=== PATIENT | female | born 1990 | race Hispanic/Latino ===

== ENCOUNTER 2019-08-16 15:33 | Emergency (ER) | payer OTHER | END 2019-08-16 16:41 | disposition home or self-care (01) | LOC: EDH 15:33 | DX: J06.9 Acute upper respiratory infection, unspecified (principal); Z20.828 Contact with and (suspected) exposure to other viral communicable diseases | CPT/HCPCS: 36415; 99283; U0003 ==

== ENCOUNTER 2025-02-15 02:02 | Emergency (ER) | payer MEDICAID, OTHER ==
[~2025-02-15] VITALS: Ht 160 cm; Wt 95.3 kg
--- NOTE | 2025-02-15 02:05 | NUR ---
REPORT TO ALESHA VÁZQUEZ
--- NOTE | 2025-02-15 02:08 | NUR ---
UA CUP PROVIDED
[2025-02-15 02:22] LABS: IMMATURE GRANULOCYTE ABSOLUTE 0.03 K/uL (0-1); NUCLEATED RED BLOOD CELLS 0.0 % (0.0-0.19); PLATELET COUNT (AUTO) 269 K/uL (130-400); RED BLOOD CELL COUNT(AUTO) 4.16 MIL/uL (4.00-5.50); RED CELL DISTRIBUTION WIDTH 12.3 % (11.0-15.5); WHITE BLOOD COUNT (AUTO) 10.4 K/uL (4.8-10.8)
--- NOTE | 2025-02-15 02:26 | ERN ---
ED Note History of Present Illness Stated Complaint: ABD PAIN Chief Complaint: Abdominal Pain Time Seen by MD: 02:17 Time Seen by Midlevel: 02:17 Dictation: The patient is a 34-year-old female with no past medical history who presents to the emergency department with complaints of right lower quadrant pain associated with nausea and vomiting onset midnight. Patient denies any diarrhea or constipation. Reports last bowel movement was yesterday. Denies any fevers. Denies any known . Allergies: Coded Allergies: No Known Drug Allergies (Unverified Allergy, Unknown, 09/20/22) Home Meds Active Scripts Ketorolac Tromethamine (Toradol) 10 Mg Tab, 1 TAB PO Q6HPRN PRN for pain for 5 Days, #20 TAB 0 Refills Prov:MONIQUE RODRIGUEZ MD 02/15/25 Reported Medications Ibuprofen (Ibuprofen) 600 Mg Tablet, 600 MG PO Q6H PRN for PAIN, TAB 09/22/22 Past Medical History Past Medical History: Other Additional Past Medical Hx: GASTRITIS Surgical History: None Family History: Negative Social History: Negative LMP: Jan 01, 2025 RN Note Reviewed/Agreed w/PFSH: Yes Review of System Dictation Constitutional: Negative for fever,chills, and weight loss Eyes: Negative for injury, pain,redness, and discharge ENT: Negative for injury,pain or swelling Cardiovascular: Negative for chest pain, palpitations, and edema Respiratory: Negative for shortness of breath, cough, and wheezing, Abdomen/GI: Negative for diarrhea, and constipation positive for abdominal pain, positive for nausea, vomiting Back: Negative for injury and positive for right flank pain radiating to the right lower quadrant. pain : Negative for injury, bleeding and discharge MS/Extremity: Negative for injury and deformity Skin: Negative for rash, and discoloration Neuro: Negative for headache, weakness, numbness, tingling, and seizure Psych: Negative for suicide ideation, homicidal ideation, and hallucinations Initial Vital Sign VS Vital Signs Date Time Temp Pulse Resp B/P (MAP) Pulse Ox O2 Delivery O2 Flow Rate FiO2 02/15/25 02:03 97.3 87 20 149/97 97 Room Air 02/15/25 04:18 0 21 Physical Exam Dictation Vital Signs reviewed General Appearance: Alert, oriented x 3, no acute distress, well developed, nourished. Head and Face: non-traumatic. Eyes: PERRL, pink conjunctivas, eyelid no trauma, anterior chamber with arcus senilis. Ears: Pinnas intact and no signs of trauma or erythema ear canals clear and no discharge TM no erythema Nose: No discharge, no bleeding. Oropharynx: Mouth normal, tongue pink. pharynx clear,no erythema, tonsils no exudates, no abscesses noted, mucous membrane moist Neck: Supple, non-tender, no thyromegaly, no masses, no JVD, no bruits Breast:Deferred Chest:No tenderness, no crepitus, no paradoxical movement, no retractions Lungs:Clear, well-ventilated, symmetric, no rales, no wheezing, no rhonchi, no stridor, good breath sounds bilaterally Heart: Regular rate, regular rhythm, no murmur, no gallops Vascular: no peripheral edema, Abdomen: Soft, positive bowel sounds, nondistended, no guarding, Right lower quadrant tenderness,, no rebound, no masses no hepatomegaly, no splenomegaly, no Paul's sign, no hernias. Rectal: Deferred Genital: Deferred Neurological: Normal speech, motor function intact, sensory function intact Musculoskeletal: Neck nontender, full range of motion, back nontender, full range of motion, Extremities: nontender, full range of motion Skin: Color pink, dry, no turgor, no rash, no lacerations, no abrasions, no contusions. Lymphatic: Deferred Results (Laboratory/Radiology) Laboratory/Radiology Laboratory Tests Test 02/15/25 02:10 02/15/25 02:12 Urine Color YELLOW (YELLOW) Urine Appearance CLEAR (CLEAR) Urine pH 6.0 (5.0-8.0) Urine Specific [place] 1.028 (1.001-1.031) Urine Protein 10 mg/dL (NEGATIVE) H Urine Glucose (UA) NEGATIVE mg/dL (NEGATIVE) Urine Ketones NEGATIVE mg/dL (NEGATIVE) Urine Occult Blood NEGATIVE (NEGATIVE) Urine Nitrate NEGATIVE (NEGATIVE) Urine Bilirubin NEGATIVE mg/dL (NEGATIVE) Urine Urobilinogen 0.2 mg/dL (0.2-1.0) Urine Leukocyte Esterase NEGATIVE Humberto/uL Urine RBC 2-5 /HPF (0-1) H Urine WBC 6-10 /HPF (0-1) H Urine Squamous Epithelial Cells MOD /HPF (0-2) Urine Bacteria RARE /HPF (None Seen) Urine HCG, Qualitative NEGATIVE (NEGATIVE) White Blood Count 10.4 K/uL (4.8-10.8) Red Blood Count 4.16 MIL/uL (4.00-5.50) Hemoglobin 12.6 g/dL (12.0-16.0) Hematocrit 37.1 % (36-48) Mean Corpuscular Volume 89.2 fL (79-99) Mean Corpuscular Hemoglobin 30.3 pg (27.0-33.0) Mean Corpuscular Hemoglobin Concent 34.0 g/dL (32.0-36.0) Red Cell Distribution Width 12.3 % (11.0-15.5) Platelet Count 269 K/uL (130-400) Mean Platelet Volume 9.9 fL (7.5-10.5) Immature Granulocyte % (Auto) 0.3 % (0-1) Neutrophils (%) (Auto) 55.0 % (40.0-77.0) Lymphocytes (%) (Auto) 32.3 % (21.0-51.0) Monocytes (%) (Auto) 8.6 % (3.0-13.0) Eosinophils (%) (Auto) 3.4 % (0.0-8.0) Basophils (%) (Auto) 0.4 % (0.0-5.0) Neutrophils # (Auto) 5.7 K/uL (1.8-7.7) Lymphocytes # (Auto) 3.4 K/uL (1.0-4.8) Monocytes # (Auto) 0.9 K/uL (0.1-1.0) Eosinophils # (Auto) 0.35 K/uL (0.00-0.70) Basophils # (Auto) 0.04 K/uL (0.00-0.20) Absolute Immature Granulocyte (auto 0.03 K/uL (0-1) Nucleated Red Blood Cells 0.0 % (0.0-0.19) Sodium Level 139 mmol/L (136-145) Potassium Level 3.2 mmol/L (3.5-5.1) L Chloride Level 103 mmol/L (101-111) Carbon Dioxide Level 24 mmol/L (21-32) Blood Urea Nitrogen 14 mg/dL (7-18) Creatinine 1.0 mg/dL (0.5-1.0) Glomerular Filtration Rate Calc 76 mL/min (>90) Random Glucose 146 mg/dL (70-105) H Total Calcium 8.5 mg/dL (8.5-10.1) Lipase 24 U/L (16-77) Labs Reviewed?: Yes CT Scan Comment: REASON: Abdominal Pain, rlq ORDERING PHYSICIAN: JUAN J HYLTON PROCEDURE: ABD PEL W - CT ABDOMEN/PELVIS W/CONTRAST EXAM: CT Abdomen and Pelvis with IV contrast CLINICAL HISTORY: Abdominal Pain, RLQ TECHNIQUE: Axial computed tomography images of the abdomen and pelvis with intravenous contrast. CONTRAST: 90ml Isovue 300 intravenous contrast was administered without any incident. COMPARISON: None provided. FINDINGS: LUNG BASES: The lung bases appear clear. No pleural effusions are seen. LIVER: Unremarkable. GALLBLADDER AND BILE DUCTS: The gallbladder appears within normal limits. No radioopaque gallstones are seen. No biliary ductal dilatation is evident. PANCREAS: Unremarkable. SPLEEN: Unremarkable. ADRENAL GLANDS: Unremarkable. KIDNEYS, URETERS, AND BLADDER: The right kidney appears normal in size and shows a differential striated nephrogram on contrast sequences, suggesting pyelonephritis 0.4 cm calculus is seen in the distal aspect of the right UVJ, causing mild hydronephrosis. Tiny 0.2cm calculus noted in the lower pole calyx of the right kidney with mild hydronephrosis.The left kidney appears within normal limits. There is no hydronephrosis or hydroureter in the left kidney. Delayed excretion of contrast from both kidneys. STOMACH AND BOWEL: Unremarkable appearance of the stomach and bowel. No evidence of bowel obstruction. No evidence suggesting enteritis or colitis. APPENDIX: No evidence of acute appendicitis on CT examination. PERITONEUM: No free fluid. No free air. LYMPH NODES: No lymphadenopathy is evident. REPRODUCTIVE: Unremarkable as visualized. VASCULATURE: No evidence of abdominal aortic aneurysm. BONES: No aggressive appearing osseous lesion. No acute osseous pathology evident. IMPRESSION: Right renal striated nephrogram suggesting pyelonephritis. 0.4 cm vesicoureteric calculus causing mild hydroureteronephrosis. Tiny 0.2cm calculus at the lower pole of the right kidney. /[place] DICTATED BY: IRVIN NIELSEN Jr., MD DATE: 02/15/25530 ELECTRONICALLY SIGNED BY: IRVIN NIELSEN Jr., MD DATE: 02/15/25530 ED Course ED Course Orders Procedure Category Date Status Time Ondansetron 4mg Inj PHA 02/15/25 Complete (Zofran 4mg Inj) 02:30 0.9%Nacl 1000ml (Ns PHA 02/15/25 Complete 1000ml) 02:30 Cbc With Differential LAB 02/15/25 Complete 02:16 Urinalysis Profile LAB 02/15/25 Complete 02:16 Lipase LAB 02/15/25 Complete 02:16 Basic Metabolic Panel LAB 02/15/25 Complete 02:16 Ondansetron 4mg Inj PHA 02/15/25 Complete (Zofran 4mg Inj) 02:21 Morphine 4mg Syg PHA 02/15/25 Complete (Morphine 4mg Syg) 02:30 ,Urine Test LAB 02/15/25 Complete 02:23 Culture Urine LAMAR 02/15/25 In Process 02:34 Ct Abdomen/Pelvis CT 02/15/25 Resulted W/Contrast 02:38 Iohexol (Omnipaque) PHA 02/15/25 Complete 02:45 Current Medications Medications (Trade) Dose Ordered Sig/Porfirio Route PRN Reason Start Time Stop Time Status Last Admin Dose Admin Iohexol (Omnipaque) 75 ml STK-MED ONCE IV 02/15/25 02:45 02/15/25 02:45 DC Morphine Sulfate (morPHINE 4MG SYG) 4 mg ONCE ONCE IVP 02/15/25 02:30 02/15/25 02:27 DC Morphine Sulfate (morPHINE 4MG SYG) 4 mg ONCE ONCE IVP 02/15/25 02:30 02/15/25 02:31 DC 02/15/25 03:04 Ondansetron HCl (zoFRAN 4MG INJ) 4 mg ONCE ONCE IVP 02/15/25 02:30 02/15/25 02:31 DC 02/15/25 03:04 Ondansetron HCl (zoFRAN 4MG INJ) 4 mg STK-MED ONCE .ROUTE 02/15/25 02:21 02/15/25 02:21 DC Sodium Chloride 1,000 ml @ 0 mls/hr ONCE ONCE IV 02/15/25 02:30 02/15/25 02:31 DC 02/15/25 03:31 Vital Signs Date Time Temp Pulse Resp B/P (MAP) Pulse Ox O2 Delivery O2 Flow Rate FiO2 02/15/25 05:13 98.1 86 18 126/74 99 Room Air* 0 21 02/15/25 04:18 97.3 84 18 138/84 98 Room Air* 0 21 02/15/25 02:03 97.3 87 20 149/97 97 Room Air Medical Decision Making MDM I assumed care at 3:00 a.m. The patient is a 34-year-old female with no past medical history who presents to the emergency department with complaints of right lower quadrant pain associated with nausea and vomiting onset midnight. Patient denies any diarrhea or constipation. Reports last bowel movement was yesterday. Denies any fevers. Denies any known . Temperature 97.3 pulse 67 respirations 20 blood pressure 149/97 with a pulse oximetry of 97% on room air During my evaluation patient's spouse was also at bedside Labs reviewed CBC BNP 7 are with a normal limits except for a potassium of 3.2 CT scan of the abdomen and pelvis reviewed patient does have nephrolithiasis with a evidence of mild hydroureter and hydronephrosis. There is no evidence of any UTI. Patient responded very well to the pain medication and stated that as she went to the CT scan of the abdomen and pelvis she had a sudden moment of where the pain completely disappeared. I explained to her that there is certainly a possibility that she might have moved the stone I updated both of them on CT scan findings and it is imperative that she keeps hydration up and increased activity. When she passes the stone could be filtered and sent to the lab for composition. Verbalized full understanding and they will follow up with the primary care physician Rationale: Tests considered and ordered secondary to shared decision making include: Labs and CT scan of the abdomen and pelvis Previous outside records reviewed: Old ER visits. Risk of complication and/or morbidity or mortality of patient management: None Medications-Per medication reconciliation Need for hospitalization: Patient does not meet criteria for hospitalization. Need for emergency major/minor surgery: No There are no social concerns with this patient. Prescription drug management Prescriptions will include symptomatic care Patient's prior external medical records from other ER visits were reviewed by me as indicated. Prior testing and results from previous visits were reviewed. Prior tests were taken into account with medical decision making and resource utilization, independent historian/historians were used to obtain complete medical history. I independently interpreted the test that were performed, results were reviewed by me and considered findings on radiology if ordered. Medical management and examination interpretation discussions were had by me with other qualified healthcare professionals as indicated for the patient's care. Problem List Problem List: (1) Renal colic on right side (2) Right nephrolithiasis DX & DISP Disposition: Discharge Departure Impression: Primary Impression: Renal colic on right side Additional Impression: Right nephrolithiasis Condition: Stable Scripts Ketorolac Tromethamine (Toradol) 10 Mg Tab 1 TAB PO Q6HPRN PRN for pain for 5 Days, #20 TAB 0 Refills Prov: MONIQUE RODRIGUEZ MD 02/15/25 Additional Instructions: Patient and the caregiver have been informed of all the diagnostic tests and the imaging conducted during the today's visit to the emergency room and has verbalized understanding of the results I have personally reviewed and interpreted all diagnostic exams performed here in the ER today as well as the vital signs documented by the nursing staff. The patient is now being discharged to home and should follow up with the primary care physician or the specialist as directed by the ER staff. Referrals: PAULINA BAEZ (PCP) JUAN J HYLTON Feb 15, 2025 02:26 MONIQUE RODRIGUEZ MD Feb 15, 2025 05:01
[2025-02-15 02:31] LABS: APPEARANCE,URINE CLEAR (CLEAR); GLUCOSE, URINE (UA) NEGATIVE (NEGATIVE); LEUKOCYTE ESTERASE ,URINE NEGATIVE Leu/uL (NEGATIVE); NITRATE,URINE NEGATIVE (NEGATIVE); OCCULT BLOOD,URINE NEGATIVE (NEGATIVE)
[2025-02-15 02:32] LABS: ADD UA MICROSCOPIC YES
[2025-02-15 02:34] LABS: SQUAMOUS EPITHELIAL CELL,UR MOD /HPF (0-2)
[2025-02-15 02:34] LABS: CREATININE 1.0 mg/dL (0.5-1.0); GLOMERULAR FILTR. RATE CALC 76.0 mL/min (>90); GLUCOSE,RANDOM 146.0 mg/dL (70-105); SODIUM SERUM 139.0 mmol/L (136-145); UREA NITROGEN, BLOOD 14.0 mg/dL (7-18)
[2025-02-15] MEDS ORDERED: IOHEXOL-350 75 ML VIAL IV ONE (02:45)
[2025-02-15] MEDS: 0.9%NACL 1000ML 1,000 ML IV ONE (03:31)
--- NOTE | 2025-02-15 04:31 | HMCIMG ---
EXAM: CT Abdomen and Pelvis with IV contrast CLINICAL HISTORY: Abdominal Pain, RLQ TECHNIQUE: Axial computed tomography images of the abdomen and pelvis with intravenous contrast. CONTRAST: 90ml Isovue 300 intravenous contrast was administered without any incident. COMPARISON: None provided. FINDINGS: LUNG BASES: The lung bases appear clear. No pleural effusions are seen. LIVER: Unremarkable. GALLBLADDER AND BILE DUCTS: The gallbladder appears within normal limits. No radioopaque gallstones are seen. No biliary ductal dilatation is evident. PANCREAS: Unremarkable. SPLEEN: Unremarkable. ADRENAL GLANDS: Unremarkable. KIDNEYS, URETERS, AND BLADDER: The right kidney appears normal in size and shows a differential striated nephrogram on contrast sequences, suggesting pyelonephritis 0.4 cm calculus is seen in the distal aspect of the right UVJ, causing mild hydronephrosis. Tiny 0.2cm calculus noted in the lower pole calyx of the right kidney with mild hydronephrosis.The left kidney appears within normal limits. There is no hydronephrosis or hydroureter in the left kidney. Delayed excretion of contrast from both kidneys. STOMACH AND BOWEL: Unremarkable appearance of the stomach and bowel. No evidence of bowel obstruction. No evidence suggesting enteritis or colitis. APPENDIX: No evidence of acute appendicitis on CT examination. PERITONEUM: No free fluid. No free air. LYMPH NODES: No lymphadenopathy is evident. REPRODUCTIVE: Unremarkable as visualized. VASCULATURE: No evidence of abdominal aortic aneurysm. BONES: No aggressive appearing osseous lesion. No acute osseous pathology evident. IMPRESSION: Right renal striated nephrogram suggesting pyelonephritis. 0.4 cm vesicoureteric calculus causing mild hydroureteronephrosis. Tiny 0.2cm calculus at the lower pole of the right kidney. /Doris
[2025-02-15 05:13] VITALS: BP 126/74; PULSE 86; RESP 18; TEMP 98; O2SAT 99
== END 2025-02-15 05:25 | disposition home or self-care (01) ==
LOC: EDH 02:02
DX: N20.0 Calculus of kidney (principal); N23 Unspecified renal colic; Z87.19 Personal history of other diseases of the digestive system; Z79.899 Other long term (current) drug therapy
CPT/HCPCS: 99285; 74177; 96374; 96375; 83690; 80048; 85025; 87086; 81001; 81025; 36415; J7030; J2405; J2270; Q9967